=== PATIENT | male | born 1990 | race Caucasian/White ===

== ENCOUNTER 2019-10-12 16:42 | Emergency (ER) | payer MEDICAID ==
[~2019-10-12] VITALS: Ht 177.8 cm; Wt 110.0 kg
[2019-10-12 16:51] VITALS: BP 173/118
== END 2019-10-12 17:05 | disposition left against medical advice (07) ==
LOC: ER 16:42
DX: Z53.21 Procedure and treatment not carried out due to patient leaving prior to being seen by health care provider (principal)